=== PATIENT | female | born 1960 | race Caucasian/White ===

== ENCOUNTER 2017-08-16 17:15 | Emergency (ER) | payer OTHER ==
[2017-08-16 17:24] VITALS: BP 155/76; PULSE 87; TEMP 97.6; BMI 26.6
--- NOTE | 2017-08-16 18:20 | PDOC ---
History of Present Illness - General Chief Complaint: Injury Stated Complaint: LT WRIST PAIN Time Seen by Provider: 08/16/17 17:25 History Source: Patient - History of Present Illness Initial Comments: 08/16/17 18:15 Patient is a 56 yo F with a PMH of HTN, Diabetes, presented today with 4/10, left wrist pain s/p mechanical fall. Patient was walking and lost balance, Falling on outstreched hand, and injury to left wrist. Movement makes the pain worse. Patient did not take anything for the pain. She felt nauseated after falling but denies vomiting. She denies numbness, LOC, chest pain, visual defects, and head trauma. 08/16/17 18:37 08/16/17 18:44 Occurred: reports: just prior to arrival Method of Injury: Yes: fall Loss of Consciousness: no loss of consciousness Past History - Past Medical History Allergies/Adverse Reactions: Allergies Allergy/AdvReac Type Severity Reaction Status Date / Time No Known Allergies Allergy Verified 08/16/17 17:17 Home Medications: Ambulatory Orders Glyburide/Metformin HCl [Glucovance 5-500 mg Tablet] 1 each PO BID 03/01/12 Lisinopril [Zestril] 20 mg PO DAILY 03/01/12 Aspirin [Aspirin EC] 81 mg PO DAILY 07/21/14 Calcium Carbonate/Vitamin D3 [Calcium 600-Vit D3 200 Tablet] 1 each PO DAILY Cholecalciferol (Vitamin D3) [Vitamin D3] 1,000 unit PO DAILY 07/21/14 [place]-3 Fatty Acids/Fish Oil [Fish Oil 1,000 mg Softgel] 2 each PO BID 07/21/14 Atorvastatin Ca [Lipitor] 10 mg PO HS 08/16/17 Canagliflozin [Invokana] 100 mg PO DAILY 08/16/17 Anemia: No Asthma: No Cancer: No Cardiac Disorders: No CVA: No COPD: No CHF: No Dementia: No Diabetes: Yes (TYPE II) GI Disorders: No Disorders: No HTN: Yes Hypercholesterolemia: Yes Liver Disease: No Thyroid Disease: No - Surgical History Abdominal Surgery: No Appendectomy: No Cardiac Surgery: No Cholecystectomy: No Lung Surgery: No Neurologic Surgery: No Orthopedic Surgery: Yes (s/p left ankle fracture w/ subsequent hardware repair) - Immunization History Td Vaccination: No TDAP Vaccination: No - Suicide/Smoking/Psychosocial Hx Smoking Status: No Smoking History: Never smoked Have you smoked in the past 12 months: No Number of Cigarettes Smoked Daily: 0 Hx Alcohol Use: (occasional) Drug/Substance Use Hx: No Substance Use Type: None Review of Systems - Review of Systems Able to Perform ROS?: Yes *Physical Exam - Vital Signs Last Vital Signs Temp Pulse Resp BP Pulse Ox 97.6 F 87 18 155/76 98 08/16/17 17:15 08/16/17 17:15 08/16/17 17:15 08/16/17 17:15 08/16/17 17:15 - Physical Exam General Appearance: Yes: Nourished, Appropriately Dressed. No: Apparent Distress HEENT: positive: EOMI, ADAMA, Normal Voice Neck: positive: Supple Respiratory/Chest: positive: Lungs Clear, Normal Breath Sounds. negative: Respiratory Distress, Rales, Wheezing Cardiovascular: positive: Regular Rhythm, Regular Rate Gastrointestinal/Abdominal: positive: Normal Bowel Sounds, Soft Musculoskeletal: negative: Decreased Range of Motion Extremity: positive: Normal Capillary Refill, Normal Range of Motion, Tender ( Left wrist tenderness to deep palpation), Swelling (swelling of wrist in dorsal aspect of left hand), Other (2+ pulses radial pulses B/L) Integumentary: positive: Normal Color. negative: Erythema Neurologic: positive: Fully Oriented, Alert, Normal Response, Motor Strength 5/5 , Other (Sensation intact and equal throughout. ). negative: Numbness, Sensory Deficit Deep Tendon Reflexes: Bicep (L): 2+, Bicep (R): 2+ ED Treatment Course - RADIOLOGY Radiology Studies Ordered: Category Date Time Status WRIST-LEFT [RAD] Stat Radiology 08/16/17 17:40 Taken Progress Note - Progress Note Progress Note: #Left Wrist pain s/p mechanical fall -Fall on outstreched hand, injury to left wrist. -swelling of wrist, tender to palpation -Xray of the left wrist ordered Medical Decision Making - Medical Decision Making Left Wrist Xray revealed Non-displaced fracture of distal radius. -Splint and sling placed on patient -Will need to follow up with orthopedic in 1 week. 08/16/17 18:41 *DC/Admit/Observation/Transfer Diagnosis at time of Disposition: Hand fracture, left Qualifiers: Encounter type: initial encounter Fracture type: closed Qualified Code(s): S62.92XA - Unspecified fracture of left wrist and hand, initial encounter for closed fracture; S62.92XA - Unspecified fracture of left wrist and hand, initial encounter for closed fracture - Discharge Dispostion Disposition: HOME Condition at time of disposition: Stable Admit: No - Patient Instructions Additional Instructions: You will need to follow up with your orthopedic doctor in 1 week. If you have worsening symptoms please call your doctor. If it is an emergency, visit your nearest emergency department.
--- NOTE | 2017-08-16 18:46 | PDOC ---
Attending Attestation - Resident Resident Name: Jesus Alberto Fagan - ED Attending Attestation I have performed the following: I have examined & evaluated the patient, The case was reviewed & discussed with the resident, I agree w/resident's findings & plan, Exceptions are as noted - HPI HPI: 08/16/17 18:43 Fall on outstretched arms, injury to left wrist. Pain over the distal radius. No distal numbness tingling weakness or limited motion of the hand or fingers. - Physicial Exam PE: 08/16/17 18:44 There is mild swelling over the distal radius. Point tenderness just proximal to the wrist. No deformity. Pulses full. Good capillary refill all 5 digits. No sensory deficits to the wrist or hand. Full range of motion of all flexor and extensor tendons - Medical Decision Making 08/16/17 18:45 X-ray reveals incomplete fracture of the distal radius, nondisplaced, not involving the joint space. Volar splint applied. Patient more comfortable after application. No distal numbness or tingling. Good finger motion. Good capillary refill maintained. Good pulses Patient up from your orthopedics for follow-up with orthopedics as recommended one week. Return to ER if there is increased pain numbness tingling or limited motion of the hand or fingers. Fully ambulatory and in minimal pain and no other distress upon discharge with splint sling to follow-up as recommended
== END 2017-08-16 18:50 | disposition home or self-care (01) ==
LOC: FER 17:15
PROC: 2W3DX1Z Immobilization of Left Lower Arm using Splint (ICD-10-PCS; principal; 2017-08-16)
DX: S62.92XA Unspecified fracture of left hand, initial encounter for closed fracture (principal); W18.39XA Other fall on same level, initial encounter; Y93.89 Activity, other specified; Y92.9 Unspecified place or not applicable
CPT/HCPCS: 73110-TC-LT; 99284-25

== ENCOUNTER 2019-10-10 06:58 | Day surgery (SDC) | payer OTHER ==
[2019-10-09 16:54] VITALS: BMI 40.7
[2019-10-10 09:47] VITALS: TEMP 97.9
[2019-10-10 10:28] VITALS: BP 116/65; PULSE 76
--- NOTE | 2019-10-13 16:29 | PATH ---
Surgical Pathology Report Patient Name: HANNAH WOODARD [facility]. Rec. #: [id number] /Age/Gender: 1960 (Age: 59) / F Account: [id number] Location: [facility]-ENDOSCOPY Taken: 10/10/2019 Received: 10/10/2019 Reported: 10/13/2019 Physicians: Herbert Rosas M.D. Specimen(s) Received DESCENDING COLON POLYP Clinical History History of rectal polyps Postoperative diagnosis: Descending colon polyp, diverticulosis, hemorrhoids Final Diagnosis DESCENDING COLON, POLYP, BIOPSY: TUBULAR ADENOMA. Electronically Signed Anne Nuno M.D. Gross Description Received in formalin, labeled "descending colon polyp biopsy" are 3 alvarez, irregular portions of soft tissue ranging from 0.1-0.3 cm. in greatest dimension. The specimens are submitted in toto in one cassette. /10/10/201910/10/2019
== END 2019-10-10 10:42 | disposition home or self-care (01) ==
LOC: JASU-ENDO 06:58
PROVIDERS: ATTEND Internal Medicine Gastroenterology
PROC: 0DBM8ZX Excision of Descending Colon, Via Natural or Artificial Opening Endoscopic, Diagnostic (ICD-10-PCS; principal; 2019-10-10 08:00)
DX: Z12.11 Encounter for screening for malignant neoplasm of colon (principal); Z86.010 Personal history of colon polyps; D12.4 Benign neoplasm of descending colon; K57.30 Diverticulosis of large intestine without perforation or abscess without bleeding; K64.8 Other hemorrhoids; I10 Essential (primary) hypertension; E11.9 Type 2 diabetes mellitus without complications; E66.01 Morbid (severe) obesity due to excess calories
CPT/HCPCS: 82962; 88305-TC